=== PATIENT | female | born 1950 | race Caucasian/White ===

== ENCOUNTER 2017-03-27 14:44 | Emergency (ER) | payer MEDICARE, OTHER ==
[~2017-03-27] VITALS: Ht 167.6 cm; Wt 65.8 kg
[2017-03-27] MEDS ORDERED: SODIUM CHLORIDE 0.9% 1,000 ML IV ONE (17:43)
[2017-03-27] MEDS ORDERED: LORazepam 2MG/ML-1ML VIAL IV ONE (17:45)
[2017-03-27 18:17] LABS: Basophils # (auto) 0 uL; Basophils % (auto) 0.2 % (0.0-2.0); Eosinophils # (auto) 0 uL; Hematocrit 35.4 % (36.0-46.0); Hemoglobin 12.1 g/dL (12.2-16.2); Lymphocytes # (auto) 0.9 uL; Lymphocytes % (auto) 6.3 % (10.0-50.0); Mean Corpuscular Hemoglobin 32.7 pg (28.0-32.0); Mean Corpuscular Hgb Conc. 34.3 g/dL (32.0-36.0); Mean Corpuscular Volume 95.3 fL (80.0-100.0); Mean Platelet Volume 7.2 fL (6.9-10.8); Monocytes # (auto) 1.4 uL; Monocytes % (auto) 9.8 % (0.0-12.0); Neutrophils # (auto) 12.1 uL; Neutrophils % (auto) 83.7 % (37.0-80.0); Platelet Count (auto) 349 10^3/uL (140-450); Red Cell Distribution Width 12.2 % (11.8-14.3); White Blood Cell 14.5 10^3/uL (4.4-10.8)
[2017-03-27 18:44] LABS: Albumin 3.1 g/dL (3.4-5.0); BUN/Creatinine Ratio 14.9; Calcium 8.6 mg/dL (8.5-10.1); Magnesium 2.2 mg/dL (1.6-2.6); Potassium 3.9 mmol/L (3.5-5.1); Total Protein 6.8 g/dL (6.4-8.2)
[2017-03-27] MEDS ORDERED: HYDROmorphone HCL 2 MG/ML VL IV ONE (20:30)
[2017-03-27] MEDS ORDERED: cefTRIAXone 1GM/50ML D5W 50 ML IV ONE (20:45)
[2017-03-27] MEDS ORDERED: ONDANSETRON HCL 4 MG/2 ML VIAL IV ONE (20:45)
[2017-03-28] MEDS ORDERED: HYDROmorphone HCL 2 MG/ML VL IV ONE (05:45)
[2017-03-28] MEDS ORDERED: ONDANSETRON HCL 4 MG/2 ML VIAL IV ONE (05:45)
[2017-03-28 07:02] LABS: Urine Bilirubin Negative (Negative); Urine Blood TRACE /uL (Negative); Urine Color Yellow (Yellow); Urine Glucose Normal (Normal); Urine Ketone Negative (Negative); Urine Mucus FEW (None Seen); Urine Nitrite Negative (Negative); Urine RBC 12 /hpf (0 - 4); Urine pH 6.5 (5.0-8.0)
[2017-03-28 08:03] VITALS: BP 141/65
== END 2017-03-28 08:46 | disposition home or self-care (01) ==
LOC: ER 14:54
DX: R25.2 Cramp and spasm (principal); M54.2 Cervicalgia; N39.0 Urinary tract infection, site not specified; Z86.73 Personal history of transient ischemic attack (TIA), and cerebral infarction without residual deficits
CPT/HCPCS: 36415; 70450; 71010; 80053; 81001; 83735; 84443; 85025; 93005; 94761; 96361; 96374; 96375; 96376; 99285; J1170; J2060; J2405; J7030

== ENCOUNTER 2018-09-16 13:00 | Inpatient (IN) | payer MEDICARE, OTHER ==
[2018-09-16] VITALS (31 sets, daily range): BP systolic 90–129; BP diastolic 47–91
[~2018-09-16] VITALS: Ht 165.1 cm; Wt 65.7 kg
[~2018-09-16 13:00] MED LIST: ALB5IS NEB; APIX5TAB OR; ATOR20TA PO; BUPR100T14 PO; CARV25TA55 PO; FLUO-125 PO; FLUT100I IN; FLUT1INH6 IN; FURO20TA3 PO; HYDR-4072 PO; OMEP20TA PO
[2018-09-16 13:45] LABS: Basophils # (auto) 0.1 uL; Basophils % (auto) 0.7 % (0.0-2.0); Eosinophils # (auto) 0 uL; Eosinophils % (auto) 0.3 % (0.0-7.0); Hematocrit 47.4 % (36.0-46.0); Hemoglobin 15.3 g/dL (12.2-16.2); Lymphocytes # (auto) 1.7 uL; Lymphocytes % (auto) 15.5 % (10.0-50.0); Mean Corpuscular Hemoglobin 32.6 pg (28.0-32.0); Mean Corpuscular Hgb Conc. 32.4 g/dL (32.0-36.0); Mean Corpuscular Volume 100.7 fL (80.0-100.0); Monocytes # (auto) 1.3 uL; Monocytes % (auto) 11.5 % (0.0-12.0); Neutrophils # (auto) 7.9 uL; Nucleated Red Blood Cells % 0.2 %; Platelet Count (auto) 398 10^3/uL (140-450); Red Cell Distribution Width 17.1 % (11.8-14.3); White Blood Cell 10.9 10^3/uL (4.4-10.8)
[2018-09-16 14:01] LABS: Alanine Aminotransferase 24 U/L (13-56); Albumin 1.9 g/dL (3.4-5.0); Anion Gap 7 (5-15); Aspartate Aminotransferase 38 U/L (15-37); BUN/Creatinine Ratio 16.2; Blood Alcohol < 3.0 mg/dL (0-5); Blood Urea Nitrogen 12 mg/dL (7-18); Calcium 8.5 mg/dL (8.5-10.1); Carbon Dioxide 23 mmol/L (21-32); Chloride 108 mmol/L (98-107); GFR African American 100 mL/min; GFR Non-African American 83 mL/min; Glucose 125 mg/dL (74-106); Potassium 5.4 mmol/L (3.5-5.1); Sodium 138 mmol/L (136-145)
[2018-09-16 14:05] LABS: Alkaline Phosphatase 135 U/L (45-117); Bilirubin, Total 0.9 mg/dL (0.2-1.0)
[2018-09-16] MEDS ORDERED: ETOMIDATE (2MG/ML) 20ML VIAL IV ONE (14:30)
[2018-09-16] MEDS ORDERED: SUCCINYLCHOLINE CHLORIDE 20 MG/ML 10ML VIAL IV ONE (14:30)
[2018-09-16] MEDS ORDERED: PIPERACILLIN-TAZOB 3.375GM 100 ML IV ONE (14:45)
[2018-09-16] MEDS ORDERED: VANCOMYCIN 1GM/250ML 250 ML IV ONE (14:45)
[2018-09-16] MEDS: MIDAZOLAM DRIP 50 mg/50mL 50 ML IV SCH ×2 (14:48→20:28)
[2018-09-16] MEDS ORDERED: NOREPINEPHRINE 8 MG/250ML KIT 250 ML IV ONE (15:06)
[2018-09-16 15:10] LABS: Lactic Acid w/Reflex 3.8 mmol/L (0.4-2.0)
[2018-09-16] MEDS: NOREPINEPHRINE 8 MG/250ML KIT 250 ML IV SCH (15:29)
[2018-09-16] MEDS ORDERED: NITROGLYCERIN 0.4 MG SL TAB SL PRN (15:45)
[2018-09-16] MEDS ORDERED: MORPHINE SULF INJ 2 MG/ML SYRINGE 1ML IV PRN (15:45)
[2018-09-16] MEDS ORDERED: AMIODARONE HCL 150 MG in D5W 5% 100 ML IV ONE (16:15)
[2018-09-16] MEDS ORDERED: AMIODARONE HCL 900 MG in DEXTROSE 500 ML IV SCH (16:25)
[2018-09-16 17:07] LABS: INR 1.13 (0.9-1.15)
--- NOTE | 2018-09-16 17:55 | NUR ---
TRANSPORTED PT TO ICU WITHOUT INCIDENT, PT WAS ON FIELD MANAGER AND BAGGED WITH 100% FIO2, SAT 100%, TOLERATED WELL. PLACED PT ON VENT ON PREVIOUS SETTINGS. SEE CHARTING
--- NOTE | 2018-09-16 18:00 | NUR ---
Admit to ICU from ER on SILVESTRE Salazar admitted to ICU via gurney on cardiac technician, intubated and being bagged by Respiratory Therapist. Patient transfered to bed, connected to mechanical ventilator by therapist, PILLO at bedside. Patient connected to ICU monitoring, weighed by shannon, oriented to Ashley Trevizo primary RN, unit, ventilator and sedation. Right TLC - Versed at 10mg. Levophed at 2mcg. Pt tolerating ventilator at this time 8.0/24 ac 12 tv 450 40% fi02 peep 5 Pupils 3 brisk bilaterally. Positive gag. Sedated Lungs clear/ diminished Mcallister draining hillary urine - only 25cc, per Er, current output is inaccurate at this time. U/A pending Og in place clamped. abd Skin- Multiple wounds noted. See physical skin assessment. Awaiting Amio at this time, has not been administered at this time.
--- NOTE | 2018-09-16 18:36 | NUR ---
PHARMACY CALLED FOR AMIO GTT. MEDICATION BEING SENT.
--- NOTE | 2018-09-16 19:30 | NUR ---
OPENING NOTE; INTUBATED AND SEDATED, DOES NOT OPEN EYES, NOR TRACK NOR FOLLOW COMMANDS, DOES RESPOND TO PAINFUL STIMULI. AFIB WITH PVCs, HR 100s. SBP 90-100, MAP > 65 ON LEVOPHED DRIP. LEFT UPPER EXTREMITY, 2+ EDEMA. BILATERAL LOWER EXTREMITY EDEMA, 2+. UNABLE TO LOCATE DORSALIS PEDIS ON RIGHT FOOT, BUT ABLE TO LOCATE POSTERIOR TIBIALIS PULSE VIA DOPPLER. ABLE TO LOCATE BOTH PULSES ON LEFT FOOT. 7.5 ETT, 24 AT THE LIP. EVEN AND UNLABORED BREATHING, SpO2>95% ON CURRENT VENT SETTINGS. LS CTA, DIMINISHED WITH EXCEPTION OF INSPIRATORY AND EXPIRATORY WHEEZE TO THE RIGHT SIDE. THICK CREAMY ORAL SECRETIONS. ABD SOFT. HYPOACTIVE BS. UNKNOWN FLATUS OR LBM. OGT PATENT WITH +AIR BOLUS. LINDQUIST PATENT AND INTACT, DRAINING MINIMAL TEMITOPE CLOUDY URINE. RIGHT IJ CVC, CDI, PATENT WITH BLOOD RETURN. SEE SKIN AND WOUND FLOWSHEET FOR ASSESSMENT. REINFORCED POC. MAINTAINED PATIENT SAFETY: BED LOCKED AND IN THE LOWEST POSITION, FREQUENT VISUAL CHECKS. WILL CONT CARE
--- NOTE | 2018-09-16 19:30 | NUR ---
SPOKE WITH PATIENT'S , ANTONY: PER ANTONY, PATIENT WAS DISCHARGED ON WEDNESDAY FROM [facility] FOR RANJAN, HEMATURIA, AND AMS. AT TIME OF DISCHARGE, ADVISED THEM TO HOLD ELIQUIS FOR A FEW DAYS BEFORE RESTARTING. ANTONY SET UP PW OF [employer], WITH CONTACT PHONE NUMBER OF [phone] AND [phone]. ADVISED ANTONY TO BRING LIST OF PATIENT'S MEDICATIONS TOMORROW.
--- NOTE | 2018-09-16 19:54 | NUR ---
ADMISSION ASSESSMENT INCOMPLETE ADMISSION COMPLETED BASED OFF CHART. NO FAMILY AT BEDSIDE ATTEMPTED TO CONTACT CIERRA HARDY LISTED ON FACESHEET, NO ANSWER, CALLBACK NUMBER LEFT. NOC NURSE TO FOLLOW AT THIS POINT.
[2018-09-16 20:14] LABS: Potassium 3.6 mmol/L (3.5-5.1)
[2018-09-16 20:15] LABS: BUN/Creatinine Ratio 20.6
--- NOTE | 2018-09-16 20:41 | NUR ---
PAGED OUTBOARD TECHNICIAN HOSPITALIST
--- NOTE | 2018-09-16 21:13 | NUR ---
SEDATION VACATION: UNABLE TO COMPLETE AT THIS TIME, PATIENT NEWLY INTUBATED. DOES GRIMACE TO PAINFUL STIMULI. WILL ASSESS SEDATION LEVEL Addendum: 09/16/18 at 2114 by Susana Honeycutt RN RN Amended: Links added.
--- NOTE | 2018-09-16 21:15 | NUR ---
PAGED PROPULSION MACHINERY SERVICE ENGINEER HOSPITALIST
[2018-09-16] MEDS ORDERED: ALBUTEROL SULF 2.5 MG/0.5ML(0.5%) NEB SOLN NEB PRN (21:45)
[2018-09-16] MEDS ORDERED: POTASSIUM CHL 20MEQ/100ML 100 ML IV ONE (21:45)
--- NOTE | 2018-09-16 21:45 | NUR ---
SPOKE WITH RODRIGUEZ ELLIS: NOTIFIED OF POTASSIUM LEVEL, ECTOPY, AND SCHEDULED LASIX ORDER. ORDER TO GIVE 20 MEQ KCL RIDER. NOTIFIED OF WHEEZING, LUNG SOUNDS. ORDERS FOR ALBUTEROL 2.5 MG MED NEB Q 6H PRN. ORDERS READBACK AND VERIFIED,
[2018-09-16] MEDS: FUROSEMIDE 40 MG/4 ML VIAL IV SCH (21:52)
[2018-09-16] MEDS: SODIUM CHLOR 0.9% PF (SALINE LOCK) 10ML VIAL/SYR IV SCH (21:52)
[2018-09-16] MEDS: APIXABAN 5 MG TAB NG SCH (21:53)
[2018-09-16] MEDS ORDERED: APIXABAN 5 MG TAB PO SCH (22:00)
[2018-09-16] MEDS ORDERED: PATIENTS OWN MEDICATION (ELIQUIS 5 MG) PO SCH (22:00)
[2018-09-16] MEDS ORDERED: ENOXAPARIN SOD 40 MG/0.4 ML SYRINGE SC SCH (22:00)
[2018-09-16 22:32] LABS: Alcohol, Urine < 3.0 mg/dL (0-5); Amphetamine Screen, Urine NEGATIVE (NEGATIVE); Barbiturate Scree,Urine NEGATIVE (NEGATIVE); Benzodiazephine Screen, Urine POSITIVE (NEGATIVE); Cannabinoid Screen, Urine POSITIVE (NEGATIVE); Cocaine Screen, Urine NEGATIVE (NEGATIVE); Opiate Scree,Urine POSITIVE (NEGATIVE); Phencyclidine Screen, Urine NEGATIVE (NEGATIVE)
[2018-09-16 22:44] LABS: Urine Bacteria FEW /hpf (None Seen); Urine Blood 3+ /uL (Negative); Urine Mucus FEW (None Seen); Urine Specific Gravity 1.029 (1.001-1.035); Urine WBC 10 /hpf (0 - 5)
[2018-09-17] VITALS (109 sets, daily range): BP systolic 82–139; BP diastolic 44–97
[2018-09-17] MEDS: AMIODARONE HCL 900 MG in DEXTROSE 500 ML IV SCH ×2 (01:15→16:16)
[2018-09-17] MEDS: MIDAZOLAM DRIP 50 mg/50mL 50 ML IV SCH (03:09)
[2018-09-17 04:06] LABS: Basophils # (auto) 0.2 uL; Basophils % (auto) 2.5 % (0.0-2.0); Eosinophils # (auto) 0.1 uL; Eosinophils % (auto) 0.6 % (0.0-7.0); Hematocrit 40.3 % (36.0-46.0); Hemoglobin 13.4 g/dL (12.2-16.2); Lymphocytes # (auto) 1.5 uL; Lymphocytes % (auto) 14.7 % (10.0-50.0); Mean Corpuscular Hemoglobin 32.5 pg (28.0-32.0); Mean Corpuscular Hgb Conc. 33.1 g/dL (32.0-36.0); Mean Corpuscular Volume 98.1 fL (80.0-100.0); Monocytes # (auto) 1.4 uL; Monocytes % (auto) 13.9 % (0.0-12.0); Neutrophils # (auto) 6.8 uL; Neutrophils % (auto) 68.3 % (37.0-80.0); Platelet Count (auto) 314 10^3/uL (140-450); Red Blood Cells 4.11 10^6/uL (4.0-5.20); Red Cell Distribution Width 16.4 % (11.8-14.3); White Blood Cell 9.9 10^3/uL (4.4-10.8)
--- NOTE | 2018-09-17 04:19 | NUR ---
NOTED WITH FIRM LESION TO TOP OF HEAD: SHOWED YOU NARVAEZ
--- NOTE | 2018-09-17 04:19 | NUR ---
BED BATH WITH CHG WIPES, BRYAN CARE, LINDQUIST CARE, ORAL CARE, HAIR CARE, AND PARTIAL LINEN CHANGE COMPLETED
[2018-09-17 04:30] LABS: Albumin 1.6 g/dL (3.4-5.0); Potassium 3.5 mmol/L (3.5-5.1)
[2018-09-17 04:38] LABS: BUN/Creatinine Ratio 21.7; Calcium 7.9 mg/dL (8.5-10.1); Total Protein 4.8 g/dL (6.4-8.2)
--- NOTE | 2018-09-17 05:00 | NUR ---
LEVO GTT STOPPED
[2018-09-17] MEDS: SODIUM CHLOR 0.9% PF (SALINE LOCK) 10ML VIAL/SYR IV SCH ×3 (05:51→21:32)
--- NOTE | 2018-09-17 06:30 | NUR ---
SBP DROPPED FROM 90s TO 80s - LEVO GTT RESTARTED
--- NOTE | 2018-09-17 07:22 | NUR ---
REPORT AND CARE ENDORSED TO YOU KNOWLES
--- NOTE | 2018-09-17 08:15 | NUR ---
ASSESSMENT COMPLETED - SEE FLOWSHEET. VERSED, LEVOPHED ET AMIO INFUSING - SEE FLOWSHEET.
--- NOTE | 2018-09-17 09:00 | NUR ---
VERSED DECREASED. Addendum: 09/17/18 at 2036 by Danae Duran RN Amended: Links added.
--- NOTE | 2018-09-17 09:15 | NUR ---
PATIENT'S ET SON VISIT - TEARFUL, SUPPORT OFFERED. FAMILY PRESENTS AIRFREIGHT LOADING SUPERVISOR WITH PATIENT'S ADVANCE DIRECTIVE - COPY MADE ET PLACED IN CHART.
[2018-09-17] MEDS: NITROGLYCERIN 0.2MG/HR TOPICAL PATCH TD SCH (10:00)
--- NOTE | 2018-09-17 10:15 | NUR ---
DR EASON VISITS ET EXAMINES PATIENT - SPEAKS WITH PATIENT'S FAMILY RE: POC ET PATIENT REQUEST TO BE DNR - ORDERS RECEIVED.
[2018-09-17] MEDS ORDERED: VANCOMYCIN PER PHARMACY 0 MG IV SCH (11:15)
--- NOTE | 2018-09-17 11:15 | NUR ---
DR NAPIER VISITS ET EXAMINES PATIENT. PATIENT'S DNR WISHES DISCUSSED WITH PATIENT'S FAMILY - ORDERS RECEIVED FOR DNR.
[2018-09-17] MEDS: DexMEDEtomidine 400 MCG in D5W 5% 96 ML IV SCH (12:06)
[2018-09-17] MEDS: ASPirin 81 mg TAB NG SCH (12:16)
[2018-09-17] MEDS: FUROSEMIDE 40 MG/4 ML VIAL IV SCH ×2 (12:16→21:32)
[2018-09-17] MEDS: APIXABAN 5 MG TAB NG SCH ×2 (12:16→21:32)
--- NOTE | 2018-09-17 12:45 | NUR ---
WOUND CARE NOTE: Wound care in to see patient per wound care request regarding intubation status, low Clay score of 8 and multiple skin integrity issue that are noted present on admission. Bedside nurse took photograph of patient's multiple skin integrity issue upon admission for reference. Patient is 67 years old female with admitting diagnosis of Resp Failure. Patient has history of htn, A Fib, CHF, COPD, CVA. Patient is resting in ICU premium bed in Rm. 101. Patient appears to be in no pain using [place] Faces Pain Scale. Her current Clay score is 12. Skin/wound assessment done with the assistance of ICU charge nurse, YOU Agarwal. Patient is on Levophed and noted her bilateral heels, foot and toes has blanchable purple discoloration. Patient noted with L Foot drop, bedside nurse applied Reagan foam boot to patient's LLE. Patient has generalized edema, scattered ecchymosis to thighs, and arms, L wrist with puncture wound with ecchymosis. She has weeping edema from L wrist puncture wound and from Rt. forearm skin tear (5x3cm). Wound is red with intact skin flap, ecchymotic, edematous periwound, moderate serous drainage, no odor noted. Cleansed patient's Rt forearm wound with NS,patted dry with sterile gauze, applied Thera honey gauze, covered with Opti lock and secured with stockinette per MD order Patient noted with bright red denuded skin to sacral, buttocks, perineum, bilateral inner thigh consisted with Moisture Associated Skin Damage. Her sacrum has non-blanchable redness with 1.5x1cm evolving DTI to L sacrum. Cleansed patient's sacral, buttocks, perineum with mild soap and water, patted dry, applied Z Guard cream and covered sacrum with Opti foam sacral dressing per MD order. Repositioned patient for comfort facing her Rt side, redistributed pressure points with pillows. Patient tolerated well. Bed in low position with all safety precautions in placed. Patient's son at bedside. RECOMMENDATION:BID/PRN cleaning and application of Z Guard cream to sacral/buttocks, perineum and thighs; EOD/PRN dressing change to Rt forearm wound per MD order, Dietary consult, frequent turning and repositioning schedule as condition permits, redistribute pressure points with pillows,elevate heels on pillows, continue monitoring by wound care while patient is hospitalized. Addendum: 09/17/18 at 1612 by Janell Parker RN Amended: Links added.
[2018-09-17] MEDS: PIPERACILLIN-TAZOB 3.375GM 100 ML IV SCH ×3 (14:00→23:46)
[2018-09-17] MEDS: methylPREDNISolone SOD SUCC 40 MG/ML VL IV SCH ×3 (14:11→23:46)
[2018-09-17] MEDS: NOREPINEPHRINE 8 MG/250ML KIT 250 ML IV SCH (16:00)
--- NOTE | 2018-09-17 20:18 | NUR ---
OPENING NOTE: INTUBATED AND OFF SEDATION SINCE THIS AM. GRIMACES AND WITHDRAWS TO PAIN. DOES NOT OPEN EYES, NOT TRACKING, NOT FOLLOWING COMMANDS. AFIB, HR 80-120s. SBP 120s ON LEVO GTT. 7.5 ETT, 24 AT THE LIP. EVEN AND UNLABORED BREATHING,. LS CTA BUT DIMINISHED TO BASES. SpO2>95% ON CURRENT VENT SETTINGS. OGT +AIR BOLUS. HYPOACTIVE BS. LBM 09/17/18. LINDQUIST PATENT, DRAINING CLEAR YELLOW URINE. SEE SKIN AND WOUND FLOWSHEET FOR ASSESSMENT. RIGHT IJ TLC CDI PATENT WITH BLOOD RETURN. REINFORCED POC. MAINTAINED PATIENT SAFETY: BED LOCKED AND IN THE LOWEST POSITION, FREQUENT VISUAL CHECK. REPOSITIONED. WILL CONT CARE
--- NOTE | 2018-09-17 21:16 | NUR ---
SEDATION VACATION: PATIENT CURRENTLY OFF OF SEDATION. WITHDRAWS TO PAINFUL STIMULI. DOES NOT OPEN EYES, TRACKS, NOR FOLLOWS COMMANDS. WILL CONT CARE Addendum: 09/17/18 at 2117 by Susana Honeycutt RN RN Amended: Links added.
[2018-09-17] MEDS: VANCOMYCIN 750 MG in D5W 5% 250 ML IV SCH (21:32)
[2018-09-18] VITALS (101 sets, daily range): BP systolic 74–153; BP diastolic 40–105
--- NOTE | 2018-09-18 00:30 | NUR ---
WOUND/SKIN CARE: SACRUM: REMOVED PREVIOUS DRESSING, SKIN WITH AREA OF BLANCHABLE AND NON-BLANCHABLE ERYTHEMA. CLEANSED WITH SOAP AND WATER. PAT DRY. COVERED AREA OF DTI WITH ZGUARD. COVERED WITH GENTLE OPTIFOAM. GROIN/PERINEAL AREA: CLEANSED WITH SOAP AND WATER. PAT DRY. APPLIED ANTIFUNGAL AND ZGUARD. PLACED PILLOW CASE BETWEEN LEGS, ATTEMPTED TO SEPARATE LEGS TO PROMOTE AIR FLOW. OTHER DRESSING REMAIN CDI AT THIS TIME
--- NOTE | 2018-09-18 00:35 | NUR ---
BED BATH WITH CHG WIPES, BRYAN CARE, LINDQUIST CARE, ORAL CARE, SKIN CARE AND FULL LINEN CHANGE COMPLETED
--- NOTE | 2018-09-18 00:36 | NUR ---
NEURO: HAS YET TO OPEN EYES, DOES GRIMACE AND WITHDRAWS MORE WITH PAINFUL STIMULI. HR REACHES 140s WITH NOXIOUS STIMULI AND RR IN THE HIGH 20s. APPEARS TO BE UNCOMFORTABLE AT THIS TIME. PLAN TO START PRECEDEX GTT AND TITRATE ACCORDINGLY.
[2018-09-18] MEDS: DexMEDEtomidine 400 MCG in D5W 5% 96 ML IV SCH (00:45)
--- NOTE | 2018-09-18 00:45 | NUR ---
PRECEDEX GTT STARTED: PATIENT TACHYCARDIC, TACHYPNEIC, APPEARED UNCOMFORTABLE. WILL TITRATE AND REASSESS.
--- NOTE | 2018-09-18 00:45 | NUR ---
LEVOPHED DRIP TURNED OFF
--- NOTE | 2018-09-18 01:05 | NUR ---
SBP DROPPED TO 90s - RESTARTED LEVOPHED AT LOW DOSE, WILL CONT CARE
--- NOTE | 2018-09-18 01:39 | NUR ---
COMFORT: RESTING MORE COMFORTABLY THAN PREVIOUSLY. HR NOW IN 80-90s. RR IN 10s. WILL CONT TO ASSESS FOR S/S OF DISTRESS AND PAIN. WILL CONT CARE
[2018-09-18 03:55] LABS: Basophils # (auto) 0 uL; Basophils % (auto) 0.1 % (0.0-2.0); Eosinophils # (auto) 0 uL; Hematocrit 44.3 % (36.0-46.0); Hemoglobin 14.7 g/dL (12.2-16.2); Lymphocytes # (auto) 0.5 uL; Lymphocytes % (auto) 6.3 % (10.0-50.0); Mean Corpuscular Hemoglobin 32.5 pg (28.0-32.0); Mean Corpuscular Hgb Conc. 33.3 g/dL (32.0-36.0); Mean Corpuscular Volume 97.7 fL (80.0-100.0); Monocytes # (auto) 0.2 uL; Monocytes % (auto) 2.6 % (0.0-12.0); Neutrophils # (auto) 6.9 uL; Platelet Count (auto) 356 10^3/uL (140-450); Red Blood Cells 4.53 10^6/uL (4.0-5.20); Red Cell Distribution Width 16.1 % (11.8-14.3); White Blood Cell 7.6 10^3/uL (4.4-10.8)
[2018-09-18 04:10] LABS: Albumin 1.4 g/dL (3.4-5.0); BUN/Creatinine Ratio 16.4; Calcium 7.5 mg/dL (8.5-10.1); Potassium 3.1 mmol/L (3.5-5.1)
[2018-09-18 04:14] LABS: Bilirubin, Total 0.8 mg/dL (0.2-1.0)
[2018-09-18] MEDS ORDERED: POTASSIUM CHL 20MEQ/100ML 100 ML IV ONE (05:39)
--- NOTE | 2018-09-18 05:40 | NUR ---
SPOKE WITH RODRIGUEZ SANTANA: NOTIFIED OF POTASSIUM LEVEL AND SCHEDULED LASIX BID. ORDERS FOR 40 MEQ KCL IVPB. ORDERS READBACK AND VERIFIED
[2018-09-18] MEDS: PIPERACILLIN-TAZOB 3.375GM 100 ML IV SCH ×3 (05:43→19:00)
[2018-09-18] MEDS: POTASSIUM CHL 20MEQ/100ML 100 ML IV SCH ×2 (05:45→06:45)
[2018-09-18] MEDS: SODIUM CHLOR 0.9% PF (SALINE LOCK) 10ML VIAL/SYR IV SCH ×3 (05:51→22:00)
[2018-09-18] MEDS: methylPREDNISolone SOD SUCC 40 MG/ML VL IV SCH ×3 (05:57→18:20)
--- NOTE | 2018-09-18 06:16 | NUR ---
NEURO STATUS: REMAINS ON LOW DOSE PRECEDEX AT THIS TIME. WITHOUT PRECEDEX, PATIENT BECOMES TACHYCARDIC, TACHYPNEIC, WITH INCREASED WORK OF BREATHING. DESPITE THIS HER RESTLESSNESS, SHE HAS NOT OPENED HER EYES ONCE. WILL ENDORSE CARE TO DAY SHIFT RN
--- NOTE | 2018-09-18 07:15 | NUR ---
REPORT AND CARE ENDORSED TO BENSON ORTA
--- NOTE | 2018-09-18 07:20 | NUR ---
TACHYCARDIC AND TACHYPNEIC - INCREASED PRECEDEX GTT HAS YET TO OPEN EYES. HR 130s. RR 30s Addendum: 09/18/18 at 0725 by Susana Honeycutt RN RN ENDORSED INTERVENTION AND VS TO YOU KNOWLES
--- NOTE | 2018-09-18 07:52 | NUR ---
BP 93/47, HR 63-94-MFKAPPAHP PRECEDEX M- WILL MONITOR.
--- NOTE | 2018-09-18 07:52 | NUR ---
SBP 93/47-PRECEDEX DECREASED.
--- NOTE | 2018-09-18 08:04 | NUR ---
SBP 83 - Levophed increased - see IV spreadsheet.
[2018-09-18] MEDS: VANCOMYCIN 750 MG in D5W 5% 250 ML IV SCH ×2 (09:00→20:57)
[2018-09-18] MEDS: ASPirin 81 mg TAB NG SCH (10:00)
[2018-09-18] MEDS: NITROGLYCERIN 0.2MG/HR TOPICAL PATCH TD SCH (10:00)
[2018-09-18] MEDS: APIXABAN 5 MG TAB NG SCH ×2 (10:00→22:00)
--- NOTE | 2018-09-18 10:09 | NUR ---
visits et examines patient - orders received.
[2018-09-18] MEDS ORDERED: Jevity 1.2 Cal/Fiber 1 Liter GT SCH (10:30)
[2018-09-18] MEDS ORDERED: DEXTROSE (50%) 50ML SYRG IV PRN (10:30)
--- NOTE | 2018-09-18 11:22 | NUR ---
PATIENT'S FAMILY ARRIVES-REQUEST TERMINAL WEAN - DR NAPIER NOTIFIED. DR YUMI CROOK ET NOTIFIED.
[2018-09-18] MEDS ORDERED: ONDANSETRON HCL 4 MG/2 ML VIAL IV PRN (11:30)
[2018-09-18] MEDS ORDERED: HYOSCYAMINE SULF 0.125 MG ODT TAB SL PRN ×2 (11:30→12:00)
[2018-09-18] MEDS ORDERED: DOCUSATE ORAL LIQUID 100 MG/10 ML UD GT PRN (11:30)
--- NOTE | 2018-09-18 11:40 | NUR ---
DR EASON VISIT ET EXAMINES PATIENT WITH RT AT BEDSIDE - ORDERS RECEIVED.
--- NOTE | 2018-09-18 11:45 | NUR ---
Respiratory note: PT EXTUBATED PER DR LYNCH. , RN, AND FAMILY AT BEDSIDE. NO STRIDOR NOTED. PT PLACED ON 2 L NASAL CANNULA.
[2018-09-18] MEDS: MORPHINE SULF INJ 2 MG/ML SYRINGE 1ML IV PRN ×2 (11:50→16:41)
--- NOTE | 2018-09-18 11:50 | NUR ---
RESP RATE 32 ET LABORED - MORPHINE 2 MG GIVEN IVP PER ORDERS. PATIENT'S FAMILY AT BEDSIDE.
[2018-09-18] MEDS: ACCU-CHEK COMFORT CURVE STRIP VI SCH ×2 (12:00→18:19)
[2018-09-18] MEDS: InsuLIN REG 1unit/0.01ml Soln (100units/ml) SC SCH ×2 (12:30→18:42)
[2018-09-18] MEDS: FUROSEMIDE 40 MG/4 ML VIAL IV SCH ×3 (12:35→23:16)
[2018-09-18] MEDS: MIDAZOLAM DRIP 50 mg/50mL 50 ML IV SCH (14:27)
[2018-09-18] MEDS: NOREPINEPHRINE 8 MG/250ML KIT 250 ML IV SCH (17:10)
--- NOTE | 2018-09-18 19:06 | NUR ---
RT NOTE: PT CHECKED FOR PRN TX, PRN TX NOT INDICATED. PT ON 2L NASAL CANNULA, SPO2 98%, HR 81, RR 22. DIMINISHED BS AUSCULTATED. WILL CONT TO MONITOR PT T/O NIGHT.
--- NOTE | 2018-09-18 19:25 | NUR ---
REPORT RECEIVED FROM BENSON ORTA RECEIVED REPORT FROM BENSON ORTA ASSUMED CARE OF FEMALE PT. PT WITHDRAWALS TO PAIN, GRIMACES WITH TURNING, AND ORAL CARE AND ANY MOVEMENT.PT DOES NOT OPEN EYES DOES NOT FOLLOW COMMANDS. PT IS ON PRIMARY EDUCATION PROFESSOR AFIB 80.PT IS ON Amiodarone DRIP 0.5MG/MIN. LEVO OR 3.5MCG/MIN. PT IS ON NC 2 L O2SAT IS 98%. PTS L ARM IS EDEMATOUS, R FOREARM HAS SKIN TEAR COVERED BY OPTIFOAM. PT HAS BLISTER TO L BREAST COVERED WITH EVA, PT HAS BILATERAL PITTING EDEMA TO LOWER EXTREMITIES, SCD PLACED TO BILATERAL LOWER EXTREMITIES. MATTHEW BOOTS IN PLACE TO OFF LOAD PRESSURE OF HEELS AND DAYA PROMINENCES. PILLOWS IN PLACE TO OFFLOAD PRESSURE FOR PT SAFETY AND COMFORT. PT HAS R TRIPLE IJ PATENT, FLUSHES. PT HAS LINDQUIST HANGING BELOW BLADDER PATENT, DRAINING PALE YELLOW URINE TO GRAVITY. HOB ELEVATED TO 30*, IN LOWEST POSITION, WHEELS LOCKED, 2 SIDE RAILS UP. NO INDICATIONS OF PAIN OBSERVED. PT IN FULL VIEW OF RN STATION, WILL CONTINUE TO CARE FOR AND MONITOR.
[2018-09-18] MEDS: AMIODARONE HCL 900 MG in DEXTROSE 500 ML IV SCH (22:25)
[2018-09-19] VITALS (65 sets, daily range): BP systolic 82–157; BP diastolic 43–114
[2018-09-19] MEDS: methylPREDNISolone SOD SUCC 40 MG/ML VL IV SCH ×2 (00:40→06:15)
[2018-09-19 04:25] LABS: Basophils # (auto) 0 uL; Basophils % (auto) 0.1 % (0.0-2.0); Eosinophils # (auto) 0 uL; Hematocrit 46.9 % (36.0-46.0); Hemoglobin 15.3 g/dL (12.2-16.2); Lymphocytes # (auto) 1.2 uL; Lymphocytes % (auto) 9.1 % (10.0-50.0); Mean Corpuscular Hemoglobin 32.3 pg (28.0-32.0); Mean Corpuscular Hgb Conc. 32.7 g/dL (32.0-36.0); Mean Corpuscular Volume 98.7 fL (80.0-100.0); Monocytes # (auto) 0.8 uL; Monocytes % (auto) 6.1 % (0.0-12.0); Neutrophils # (auto) 10.9 uL; Neutrophils % (auto) 84.7 % (37.0-80.0); Nucleated Red Blood Cells % 0.1 %; Platelet Count (auto) 411 10^3/uL (140-450); Red Blood Cells 4.75 10^6/uL (4.0-5.20); Red Cell Distribution Width 15.9 % (11.8-14.3); White Blood Cell 12.9 10^3/uL (4.4-10.8)
--- NOTE | 2018-09-19 04:30 | NUR ---
HYGIENE BED BATH PROVIDED, COMPLETE LINEN CHANGE , SKIN ASSESSED FOR INTEGRITY CHANGES, NONE NOTED. SUCTION CANISTERS AND TUBING CHANGED, REPOSITIONED FOR COMFORT AND SAFETY. PT TOLERATES TURNS AND CARE. NO INDICATIONS OF PAIN OBSERVED. WILL CONTINUE TO MONITOR AND CARE FOR PT.
[2018-09-19 04:41] LABS: Potassium 3.3 mmol/L (3.5-5.1)
[2018-09-19 04:48] LABS: Albumin 1.7 g/dL (3.4-5.0); BUN/Creatinine Ratio 16.3; Bilirubin, Total 0.6 mg/dL (0.2-1.0); Calcium 7.8 mg/dL (8.5-10.1); Total Protein 5.6 g/dL (6.4-8.2)
--- NOTE | 2018-09-19 05:42 | NUR ---
pt assessed for prn hhn tx. pt is on 2lnc, spo2 97%, hr 114, rr 16. no s/s of respiratory distress. breathing tx not indicated at this time. will continue to monitor.
[2018-09-19] MEDS: InsuLIN REG 1unit/0.01ml Soln (100units/ml) SC SCH ×2 (06:00)
[2018-09-19] MEDS: SODIUM CHLOR 0.9% PF (SALINE LOCK) 10ML VIAL/SYR IV SCH (06:15)
[2018-09-19] MEDS: ACCU-CHEK COMFORT CURVE STRIP VI SCH ×2 (06:15)
[2018-09-19] MEDS: PIPERACILLIN-TAZOB 3.375GM 100 ML IV SCH ×2 (06:15)
[2018-09-19] MEDS: MORPHINE SULF INJ 2 MG/ML SYRINGE 1ML IV PRN ×4 (06:46→18:49)
--- NOTE | 2018-09-19 09:22 | NUR ---
CALL RECEIVED FROM PHARMACY PHARMACISTS ORDERED THIS NURSE TO "HOLD ADMINISTERING VANCOMYCIN THIS MORNING, TROUGH IS HIGH, WILL REPEAT TROUGH AT NOON".
--- NOTE | 2018-09-19 10:05 | NUR ---
PATIENT'S SPOUSE AT BEDSIDE ANTONY UPDATED ON PATIENT'S STATUS. ANTONY DID MENTION TO THIS NURSE THAT HE DISCUSSED WITH FAMILY AND WAS GOING TO ASK TO REMOVE ALL MEDICATIONS NOW AND DISCUSSED POSSIBLE HOSPICE. ANTONY WAS NOTIFIED THAT HOSPITALIST WILL BE NOTIFIED AND SHOULD BE MAKING ROUNDS SOON. ANTONY VERBALIZED UNDERSTANDING.
--- NOTE | 2018-09-19 10:51 | NUR ---
HOSPITALIST AT BEDSIDE DR NAPIER UPDATED ON PATIENT'S STATUS AND EARLIER DISCUSSION WITH PATIENT'S SPOUSE ANTONY. DR NAPIER DISCUSSED PLAN OF CARE AND PROGNOSIS WITH SPOUSE AT LENGTH. ANTONY VERBALIZED UNDERSTANDING AND AGREED WITH PLAN OF CARE. DR NAPIER DID MENTION "IF PATIENT DOES NOT WITHIN 4 HOURS - THEN YOU CAN PUT AN ORDER FOR DOWNGRADE TO MED SURG WITH COMFORT MEASURES ONLY". DR NAPIER WILL ORDER HOSPICE WELL DISCUSSED WITH ANTONY.
[2018-09-19] MEDS: LORazepam 2MG/ML-1ML VIAL IV PRN ×3 (12:21→17:37)
--- NOTE | 2018-09-19 12:40 | NUR ---
Nutrition Assessment/consult Notes please see attached link for complete assessment Est. Needs BW [id number] kcal (23-25 kcal/kgBW), 70-91 gms pro (1.0-1.3 gm/kgBW r/t severe hypoalb, wounds). Will continue to monitor pertinent labs and reassessed prn Addendum: 09/19/18 at [address] Amended: Links added.
--- NOTE | 2018-09-19 14:09 | NUR ---
MESSAGE LEFT FOR SOCIAL SERVICE VERENNE REGARDING HOSPICE ORDER. SUPERVISOR [employer] JAVIER NOTIFIED OF MED SURG DOWNGRADE AND PRIVATE ROOM.
--- NOTE | 2018-09-19 15:14 | NUR ---
REPORT CALLED IN TO RECEIVING RN.
--- NOTE | 2018-09-19 15:58 | NUR ---
ICU pt transferred to floor SILVESTRE GONSALEZ transferred to room 201 via gurney on portable 02. All patient medications and personal belongings transferred with patient to receiving floor. Patient care transferred to receiving RN. Family aware.
--- NOTE | 2018-09-19 16:00 | NUR ---
PATIENT TRANSFERRED TO THE FLOOR FROM ICU. PATIENT TOLERATED TRANSFER WELL. PATIENT WAS ABNORMALLY BREATHING WITH AGONAL RESPIRATIONS, VITALS WNL.
--- NOTE | 2018-09-19 16:45 | NUR ---
SS consult regarding hospice eval. Pt was terminally weaned this morning. Spoke with , Gilberto, about hospice program. Pt has been on [facility] home health services prior to admission. Spouse requested hospice services with [facility] but informed pt that [facility] does not have a hospice agency. Provided list of Hospice agencies and spouse requested hospice eval by [facility]. Will contact Wilma, [facility] customer contact representative, and faxed medical information. Pt to be evaluated by hospice tomorrow morning. Will follow up at that time. Addendum: 09/19/18 at 1657 by MARYJANE MONGE Amended: Links added.
--- NOTE | 2018-09-19 19:10 | NUR ---
Change of shift given to material handler 2nd shift RN. No distress noted. Patient resting comfortably in bed.
[2018-09-19] MEDS: POTASSIUM CHL 20MEQ/100ML 100 ML IV SCH ×3 (19:45→23:30)
[2018-09-19] MEDS: MAGNESIUM SULFATE 1GM/100ML 100 ML IV SCH ×2 (20:00→21:00)
--- NOTE | 2018-09-19 23:27 | NUR ---
ANTONY-SPOUSE OF PATIENT ON THE PHONE STATING HE DOES NOT WANT ANY MEDICATIONS OTHER THAN COMFORT MEASURES GIVEN. CAREGIVER NOTIFIED WHEN RN EXPLAINED THAT DR SILVA HAD ORDERED POTASSIUM AND MAG SULFATE IV. CHARGE AWARE. CAREGIVER IN ROOM WITH PATIENT-WHO HAS JUST BEEN TURNED BY PRINCIPAL EMBEDDED SOFTWARE ENGINEER/RN.
--- NOTE | 2018-09-20 04:23 | NUR ---
CAREGIVER AT BEDSIDE;REFUSES LAB DRAW BY PLANNING ENGINEER.PT PULLED UP AND REPOSITIONED.
[2018-09-20 05:00] VITALS: BP 114/84
--- NOTE | 2018-09-20 07:40 | NUR ---
OPENING NOTE Assumed care of patient from [facility] RN, Nilda. Patient resting in bed with eyes closed, even rise and fall of chest noted. No S/S of distress/SOB or pain. Per RN, patient is comfort measures only. Nasal cannula in position, connected to 2L O2. Right IJ triple lumen catheter intact, patent. Mcallister catheter intact, patent, and hung below bed. Patricia boots to bilateral lower extremities. will continue to monitor for changes Q1hr and PRN.
[2018-09-20 08:15] VITALS: BP 125/79
--- NOTE | 2018-09-20 09:40 | NUR ---
FAMILY AT BEDSIDE Patient's spouse, Gilberto, at bedside.
[2018-09-20 09:45] VITALS: BP 129/99
[2018-09-20] MEDS: MORPHINE SULF INJ 2 MG/ML SYRINGE 1ML IV PRN ×3 (09:52→15:43)
--- NOTE | 2018-09-20 09:55 | NUR ---
PAIN Patient is moaning and appears to be in pain, current BP: 129/99 HR:143. Administered prn Morphine as ordered. Will continue to monitor.
--- NOTE | 2018-09-20 10:15 | NUR ---
FAMILY AT BEDSIDE Patient's daughter and son at bedside.
--- NOTE | 2018-09-20 12:05 | NUR ---
PAIN Patient is moaning and appeared to be in pain, current BP: 128/81 HR:145. Administered prn Morphine as ordered. Will continue to monitor.
[2018-09-20 12:51] VITALS: BP 104/71
[2018-09-20 13:43] VITALS: BP 104/71
[2018-09-20 15:28] VITALS: BP 142/92
--- NOTE | 2018-09-20 15:50 | NUR ---
PAIN Patient is moaning and appears to be in pain, current BP:142/92 HR:119. Administered prn Morphine as ordered. Will continue to monitor.
--- NOTE | 2018-09-20 16:00 | NUR ---
WOUND Discharge wound photos taken. Right forearm skin tear cleaned and covered with optifoam dressing. Applied z-guard to bilateral inner thighs . Z-guard applied to sacrum and covered with sacral optifoam.
--- NOTE | 2018-09-20 16:30 | NUR ---
DISCHARGE Patient being transferred home on hospice. Patient's caregiver at bedside and was given discharge paperwork. Right IJ catheter removed with catheter intact and pressure dressing applied. Per patient's family request, solano catheter left intact. Patient taken to transfer vehicle via gurney with all personal belongings, accompanied by transfer staff and caregiver. No distress noted at time of departure.
--- NOTE | 2018-09-20 16:43 | NUR ---
Spouse, Gilberto, met with Wilma [facility] hospice union representative and pt was accepted onto hospice services. Wilma ordered dme for home and setup transportation with for a pickers material handlers of 1530. Spouse verbalized understanding and agreeance with d/c plan. Addendum: 09/22/18 at 1645 by MARYJANE MONGE SS Amended: Links added.
== END 2018-09-20 19:26 | disposition home or self-care (01) | DRG 871 ==
LOC: EDBD 13:00 → ER 13:06 → EDUNIT# 15:47 → ICU WEST 15:47 → CENTRAL 09-19 16:33
PROVIDERS: ADMIT Internal Medicine; ATTEND Internal Medicine
PROC: 5A1945Z Respiratory Ventilation, 24-96 Consecutive Hours (ICD-10-PCS; principal; 2018-09-16)
PROC: 0BH17EZ Insertion of Endotracheal Airway into Trachea, Via Natural or Artificial Opening (ICD-10-PCS; 2018-09-16)
PROC: 02HV33Z Insertion of Infusion Device into Superior Vena Cava, Percutaneous Approach (ICD-10-PCS; 2018-09-16)
DX: A41.9 Sepsis, unspecified organism (principal); G93.41 Metabolic encephalopathy; I50.43 Acute on chronic combined systolic (congestive) and diastolic (congestive) heart failure; J96.00 Acute respiratory failure, unspecified whether with hypoxia or hypercapnia; E43 Unspecified severe protein-calorie malnutrition; G92 Toxic encephalopathy; I21.4 Non-ST elevation (NSTEMI) myocardial infarction; J96.21 Acute and chronic respiratory failure with hypoxia; J96.22 Acute and chronic respiratory failure with hypercapnia; J69.0 Pneumonitis due to inhalation of food and vomit; I48.1 Persistent atrial fibrillation; D68.69 Other thrombophilia; E87.3 Alkalosis; G93.1 Anoxic brain damage, not elsewhere classified; I48.92 Unspecified atrial flutter; I69.354 Hemiplegia and hemiparesis following cerebral infarction affecting left non-dominant side; N39.0 Urinary tract infection, site not specified; I47.2 Ventricular tachycardia; I11.0 Hypertensive heart disease with heart failure; E87.5 Hyperkalemia; I95.9 Hypotension, unspecified; E87.6 Hypokalemia; R65.20 Severe sepsis without septic shock; Z68.24 Body mass index [BMI] 24.0-24.9, adult
CPT/HCPCS: 31500; 36415; 36556; 36600; 51702; 70450; 71045; 80048; 80053; 80061; 80202; 80307; 80320; 81001; 82550; 82805; 82962; 83605; 83735; 83880; 84443; 84484; 85025; 85379; 85610; 85730; 87040; 87070; 87081; 87086; 87205; 93970; 94002; 94003; 96374; 96375; 99291; G0378; J0330; J1815; J2250; J2543; J3480; J7060